=== PATIENT | female | born 1995 | race Caucasian/White ===

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

== ENCOUNTER 2017-08-26 09:42 | Emergency (ER) | payer MEDICAID ==
[~2017-08-26] VITALS: Ht 160 cm; Wt 54.7 kg
[2017-08-26 09:45] VITALS: BP 137/81; PULSE 104; RESP 18; TEMP 97.7; O2SAT 99
[2017-08-26] MEDS ORDERED: CLIN300C5 PO (10:23)
[2017-08-26] MEDS ORDERED: CLINDAMYCIN PHOS 600 MG/4 ML VIAL IM ONE (10:30)
--- NOTE | 2017-08-26 10:31 | PD ---
HPI Chief Complaint: Skin Problem Time Seen by Provider: 10:11 Travel History International Travel<30 days: No Contact w/Intl Traveler<30days: No Traveled to known affect area: No History of Present Illness HPI 22-year-old female presents emergency department complaining of left breast pain for several days. States that she was washing in the bathroom when she accidentally snagged her left nipple piercing which cause a significant amount of pain. States that the area has become more erythematous and swollen. States her pain is moderate and worse with palpation. States that she does have some pus expressing from the actual piercing site. She was unable to remove the piercing because of the swelling. She denies fever, chills, chest pain, shortness of breath, abdominal pain. States she takes OCPs daily but no other medications. PFSH Past Medical History Medical History: Denies Significant Hx Diminished Hearing: No Immunizations Current: Yes ?: Not LMP: LAST WEEK Past Surgical History Surgical History: No Previous Surgery Social History Alcohol Use: Yes (rare) Tobacco Use: No Substance Use: No Allergies-Medications (Allergen,Severity, Reaction): Coded Allergies: Sulfa (Sulfonamide Antibiotics) (Unverified Allergy, Severe, Rash, 08/26/17) penicillin G (Unverified Allergy, Severe, Rash, 08/26/17) Reported Meds & Prescriptions Reported Meds & Active Scripts Active Clindamycin (Clindamycin HCl) 300 Mg Cap 300 Mg PO TID 7 Days Reported [ control pills] 1 Tab PO DIRECTED Physical Exam Narrative GENERAL: Well-nourished, well-developed patient. SKIN: Focused skin assessment warm/dry. Left breast-area of erythema approximately 5-6 cm out from the nipple, fluctuance approximately 2-3 cm in the medial aspect. Significant tender to palpation. Fluid easily expressed from the medial nipple piercing. The piercing is still in place. HEAD: Normocephalic. EYES: No scleral icterus. No injection or drainage. NECK: Supple, trachea midline. No JVD or lymphadenopathy. CARDIOVASCULAR: Regular rate and rhythm without murmurs, gallops, or rubs. RESPIRATORY: Breath sounds equal bilaterally. No accessory muscle use. GASTROINTESTINAL: Abdomen soft, non-tender, nondistended. MUSCULOSKELETAL: No cyanosis, or edema. BACK: Nontender without obvious deformity. No CVA tenderness. Data Data Last Documented VS Vital Signs Date Time Temp Pulse Resp B/P (MAP) Pulse Ox O2 Delivery O2 Flow Rate FiO2 08/26/17 09:45 97.7 104 18 137/81 (99) 99 Orders Orders Clindamycin Inj (Cleocin Inj) (08/26/17 10:30) Acetamin-Hydrocod 325-5 Mg ([place] 5-325 (08/26/17 10:45) MDM Medical Decision Making Medical Screen Exam Complete: Yes Emergency Medical Condition: Yes Differential Diagnosis left breast abscess, left breast cellulitis, left mastitis Narrative Course 22-year-old female presents emergency department complaining of left breast pain for several days. States that she was washing in the bathroom when she accidentally snagged her left nipple piercing which cause a significant amount of pain. States that the area has become more erythematous and swollen. States her pain is moderate and worse with palpation. States that she does have some pus expressing from the actual piercing site. She was unable to remove the piercing because of the swelling. She denies fever, chills, chest pain, shortness of breath, abdominal pain. States she takes OCPs daily but no other medications. Vital signs stable, slightly tachycardic Physical exam findings consistent with a left breast abscess, draining from the left medial nipple piercing. Patient is rather anxious. I discussed this finding with my supervising physician, Dr. Healy who recommended warm compresses and antibiotics. Also recommended follow-up with a general surgeon. Patient should follow-up with the general surgeon and primary care physician for further treatment and evaluation. Clindamycin 600 mg IM administered today. Patient will receive clindamycin for outpatient use. I attempted to remove the piercing however, patient was unable to tolerate the procedure. Advised that should continue to move the piercing around to assist drainage. Also advised to remove piercing as soon as possible. Wound culture obtained from fluid expression. Patient states understanding will comply. Diagnosis Primary Impression: Breast abscess Referrals: General Surgeon Patient Instructions: Abscess (ED), General Instructions Departure Forms: Tests/Procedures, Work Release Enter return to work date: Aug 29, 2017 Additional Instructions: Use warm compresses several times daily for your abscess to encourage drainage. Take all antibiotics as prescribed. You may use Tylenol or Motrin per package instructions to reduce pain. Follow-up with a primary care physician and general surgeon as discussed for the abscess. If your symptoms persist or worsen return to the emergency department. Scripts Clindamycin (Clindamycin) 300 Mg Cap 300 MG PO TID for Infection for 7 Days, CAP 0 Refills Prov: Shiv Gabriel MD 08/26/17 Disposition: 01 DISCHARGE HOME Condition: Stable Sherry Velazquez Aug 26, 2017 10:31
[2017-08-26] MEDS ORDERED: ACETAMINOPHEN/HYDROcodone 325 MG/5 MG TAB PO ONE (10:45)
[2017-08-26] MEDS ORDERED: HYDR-3516 PO (12:04)
== END 2017-08-26 12:10 | disposition home or self-care (01) ==
LOC: PHEFT 09:42
DX: N61.1 Abscess of the breast and nipple (principal); Z88.2 Allergy status to sulfonamides; Z88.0 Allergy status to penicillin
CPT/HCPCS: 86403; 87070; 87185; 87205; 96372